=== PATIENT | male | born 1965 | race Caucasian/White ===

== ENCOUNTER → 2017-07-31 | Outpatient (CLI) | payer OTHER, BC ==
[~2017-07-31] MED LIST: ALBUAER19 INH; ALLDSR/24 PO; ALPR1TAB3 PO; AMPH20TA2 PO; LAMO200T PO; LEVE500T13 PO; NORT50CA PO; NSNN50; OMEP40CA PO; OXYC-106 PO; PSYL55.43 PO; SERT-234 PO; SYMIN/8045 INH; TOPI100T34 PO; [UNRECOGNIZED DRUG - OTHER] INH
== END | disposition home or self-care (01) ==
LOC: C.RDSM 07:45
PROVIDERS: ATTEND Physical Medicine & Rehabilitation Sports Medicine
DX: Z96.653 Presence of artificial knee joint, bilateral (principal)

== ENCOUNTER 2020-10-28 06:32 | Observation (INO) ==
--- NOTE | 2020-10-02 09:59 | PAT Medication Instructions ---
Medication Instructions Date of Service October 02, 2020 Home Medications albuterol sulfate 1 inh INHALATION QID PRN lisinopril 20 mg PO QAM DO NOT take the morning of surgery lisinopril 20 mg PO QAM Take morning of surgery OTHERWISE NOTHING TO EAT OR DRINK AFTER MIDNIGHT: albuterol sulfate 1 inh INHALATION QID PRN Other Notes If you have any questions please call us at [phone] or [phone] or [phone] or [phone]
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
[2020-10-05 13:24] LABS: BUN Creatinine Ratio 12.5 (10-20); Blood Urea Nitrogen 15 mg/dl (7-18); C Reactive Protein < 0.29 mg/dl (0-0.29); Calcium 9.4 mg/dl (8.5-10.1); Carbon Dioxide 29 mmol/L (21-32); Chloride 108 mmol/L (98-107); Creatinine Clr Calc Pharmacy 85.9 ml/min; Est GFR (African American) 81.2; Glucose 127 mg/dl (70-99); Potassium 4.7 mmol/L (3.5-5.1); Sodium 140 mmol/L (136-145)
[2020-10-05 13:28] LABS: Appearance Urine Clear (Clear); Basophils # (auto) 0.01 K/uL (0-0.2); Basophils % (auto) 0.2 %; Bilirubin Urine Negative (Negative); Blood Urine Negative (Negative); Color Urine Yellow; Eosinophils # (auto) 0.23 K/uL (0-0.5); Eosinophils % (auto) 4.3 %; Glucose Urine UA Negative (Negative); Hematocrit (blood only) 47.4 % (42-52); Hemoglobin 15.9 g/dL (14.0-18.0); Immature Granulocytes # (auto) 0.01 K/uL (0.00-0.02); Immature Granulocytes % (auto) 0.2 %; Ketones Urine Trace (Negative); Leukocyte Esterase Urine Negative (Negative); Lymphocytes # (auto) 1.24 K/uL (1.2-3.4); Lymphocytes % (auto) 23.2 %; Mean Corpuscular Hemoglobin 29.3 pg (25-34); Mean Corpuscular Hgb Conc 33.5 g/dL (32-36); Mean Corpuscular Volume 87.5 fL (80-100); Mean Platelet Volume 11.4 fL (7.4-10.4); Monocytes # (auto) 0.28 K/uL (0.11-0.59); Monocytes % (auto) 5.2 %; Neutrophils # (auto) 3.57 K/uL (1.4-6.5); Neutrophils % (auto) 66.9 %; Nitrite Urine Negative (Negative); Platelet Count 124 K/uL (130-400); Protein Urine Negative (Negative); RDW Standard Deviation 44.7 fL (36.4-46.3); Red Blood Count 5.42 M/uL (4.7-6.1); Specific Gravity Urine 1.023 (1.000-1.030); Urobilinogen Urine Negative (Negative); White Blood Count 5.34 K/uL (4.8-10.8)
[2020-10-05 13:30] LABS: INR 1.1 (0.9-1.1); Partial Thromboplastin Time 26.9 Seconds (21.0-31.0); Prothrombin Time 11.6 Seconds (9.0-12.0)
--- NOTE | 2020-10-06 11:09 | Electrocardiogram Report ---
Test Reason : Blood Pressure : / mmHG Vent. Rate : 063 BPM Atrial Rate : 063 BPM P-R Int : 130 ms QRS Dur : 092 ms QT Int : 410 ms P-R-T Axes : 048 080 042 degrees QTc Int : 419 ms Normal sinus rhythm Normal ECG When compared with ECG of 28-APR-2014 11:56, No significant change was found Confirmed by Carson Worrell ([id number]) on 10/06/2020 11:09:14 AM Referred By: aLzaro Gutierrez Confirmed By:Carson Worrell
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
[~2020-10-28 06:32] MED LIST changes: -ALBUAER19 INH; -ALLDSR/24 PO; -ALPR1TAB3 PO; -AMPH20TA2 PO; -LAMO200T PO; -LEVE500T13 PO; +LR 15ML/HR IV SCH; +LR 60ML/HR IV SCH; -NORT50CA PO; -NSNN50; -OMEP40CA PO; -OXYC-106 PO; -PSYL55.43 PO; +ROPIVACAINE 0.5% HCL/PF 150 MG, BUPIVACAINE 0.75% MPF 20 ML, EPINEPHrine 0.15 MG, Ketor... INFIL SCH; -SERT-234 PO; -SYMIN/8045 INH; -TOPI100T34 PO; +TRANEXAMIC ACID 1,000 MG **IV Pre-op IV SCH; +VANCOMYCIN HCL 1,750 MG in SODIUM CHLORIDE 0.9% 500 ML IV SCH; -[UNRECOGNIZED DRUG - OTHER] INH; +ceFAZolin 2000MG 2,000 MG/15 ML SYR IV SCH
[2020-10-28] MEDS ORDERED: BUPIVACAINE 0.5 % 5 MG/1 ML PF 10ML VIAL ONE (06:39)
[2020-10-28] MEDS ORDERED: ROPIVACAINE 0.5% 5 MG/ML 30 ML VIAL ONE (06:39)
[2020-10-28] MEDS ORDERED: BUPIVACAINE 0.5 % 5 MG/1 ML MPF 30ML VIAL ONE (06:41)
[2020-10-28] MEDS ORDERED: MIDAZOLAM HCL 1 MG/ML 2ML VIAL ONE (07:06)
[2020-10-28] MEDS ORDERED: fentaNYL citrate 100 MCG/2 ML VIAL ONE ×2 (07:06→09:22)
[2020-10-28] MEDS ORDERED: ePHEDrine sulfate 50 MG/ML AMP IV PRN (07:42)
[2020-10-28] MEDS ORDERED: ONDANSETRON INJ 2 MG/ML 2 ML VIAL IV PRN ×2 (07:42→12:38)
[2020-10-28] MEDS ORDERED: ATROPINE SULFATE 0.1 MG/ML 10ML SYR IV PRN (07:42)
[2020-10-28] MEDS ORDERED: fentaNYL citrate 100 MCG/2 ML VIAL IV PRN (07:42)
[2020-10-28 07:48] LABS: Influenza A virus by PCR Negative (Neg); Influenza B virus by PCR Negative (Neg); RSV by PCR Negative (Neg); SARS CoV2 RNA(COVID-19) InHosp NEGATIVE (Negative)
[2020-10-28] MEDS ORDERED: PROPOFOL IV EMULSION 10 MG/ML 20 ML VIAL IV ONE (08:01)
[2020-10-28] MEDS ORDERED: LIDOCAINE HCL 2% 2 ML VIAL/AMP(20MG/ML) INFIL ONE (08:01)
[2020-10-28] MEDS ORDERED: ONDANSETRON INJ 2 MG/ML 2 ML VIAL ONE (08:01)
[2020-10-28] MEDS ORDERED: ROCURONIUM BROMIDE 10 MG/ML 5 ML VIAL IV ONE (08:01)
--- NOTE | 2020-10-28 08:29 | History & Physical Bridge Note ---
Date of Service October 28, 2020 History & Physical Bridge Note I have examined the patient, reviewed the History & Physical and in the interval since the performance of the History & Physical I have noted the following changes of clinical significance:consent obtained/site verified/covid screen negative.no changes noted
[2020-10-28] MEDS ORDERED: ORTHO JOINT ANESTHETIC ONE (08:44)
--- NOTE | 2020-10-28 10:52 | Post Operative Brief Note ---
Immediate Post Op Note v1 Date of Surgery October 28, 2020 Pre & Post Diagnosis Operation Date: 10/28/20 08:20 Pre-Op Diagnosis: Left Knee Patellar Button Loosening Post-Op Diagnosis: Left Knee Patellar Button Loosening I identified the patient and participated in the time-out.: Yes Procedure Operation Date: 10/28/20 08:20 Actual Procedures p Revision Left Patellar Button with Biomet/Tiff Patellar System(Left) - Lazaro Gutierrez MD Surgeon Lazaro Gutierrez MD Film [facility] Estimated Blood Loss 75 Findings Consistent with Post-Op Diagnosis
--- NOTE | 2020-10-28 10:55 | History & Physical Bridge Note ---
Date of Service October 28, 2020 History & Physical Bridge Note I have examined the patient, reviewed the History & Physical and in the interval since the performance of the History & Physical I have noted the following changes of clinical significance:additional bridge note; also see op note.please note patient requested doing his left knee today this was verified marked and new consent obtained.he will need the right done in the future. rapid covid negative. no changes noted
--- NOTE | 2020-10-28 11:08 | Operative Report ---
Post Operative Report Pre & Post Diagnosis Operation Date: 10/28/20 08:20 Pre-Op Diagnosis: Left Knee Patellar Button Loosening Post-Op Diagnosis: Left Knee Patellar Button Loosening I identified the patient and participated in the time-out.: Yes Procedure Operation Date: 10/28/20 08:20 Actual Procedures p Revision Left Patellar Button with Biomet/Tiff Patellar System(Left) - Lazaro Gutierrez MD Surgeon ANA Gutierrez MD [employer] Estimated Blood Loss 75 Findings Consistent with Post-Op Diagnosis Specimens see operative report Drains none Complications none Disposition Accompanied Patient To Recovery: Yes Disposition: Recovery Room Indications This 55-year-old white male presented to the office with complaints of persisting left knee pain. He had tried conservative care measures without improvement. He has a history of previous left total knee arthroplasty. Subsequently sustained a patellar fracture. He elected to proceed with surgical intervention after being educated about potential risks and outcomes. Preoperative imaging was obtained. Description of Procedure Patient was taken to the operating room where he was given general anesthesia. He was prepped and draped in the usual sterile fashion. Please see Dr. Gutierrez's operative report for specifics of the procedure. I was present for the entire case from initial patient positioning through final wound closure. Assistance was provided in tissue retraction, hemostasis, trial implant placement, final implant placement, and final wound closure. Patient was taken to the recovery room in satisfactory condition. I attest to the content of the Intraoperative Record and any orders documented therein. Any exceptions are noted below.
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
--- NOTE | 2020-10-28 11:18 | Progress Notes ---
DATE: 10/28/2020 SUBJECTIVE: Status post revision extensor mechanism, left patellar button for traumatic loosening. The patient is resting comfortably in the PACU. He denies any chest pain, shortness of breath, fever, chills, nausea, vomiting or headache. Neurovascular check is grossly normal. Wound dressing clean, dry and intact. X-ray is pending. ASSESSMENT: Doing well. Continue with care pathway. If he does well overnight, discharge tomorrow. DVT prophylaxis per protocol.
--- NOTE | 2020-10-28 11:38 | XRay Report ---
XR knee LT 1 or 2V routine HISTORY: 55 years-old Male revision patellar button TKA left left knee total joint arthroplasty COMPARISON: Knee radiographs 06/29/2015 TECHNIQUE: 2 views of the left knee FINDINGS: Revision of the left knee total joint arthroplasty with patellar resurfacing. Alignment appears [employer]. Dystrophic calcification again noted within the region of the proximal medial collateral lig ament. No acute fracture. There is a linear 2.6 cm ossification noted along the inferior pole of the patella. Screw tracts are noted within the distal femur and proximal tibia. Anterior midline skin sta ples are noted along with expected postsurgical soft tissue swelling and deep tissue air with surgica l drainage catheter. IMPRESSION: Satisfactory alignment of the left knee total joint arthroplasty. ACT 112: Negative or not required by law. The above report was generated using voice recognition software. It may contain grammatical, syntax o r spelling errors. Electronically signed by: Toñito Boston M.D. 10/28/2020 11:36 AM
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
--- NOTE | 2020-10-28 12:19 | Anesthesiology Progress Note ---
Date of Service October 28, 2020 Anesthesia Post Procedure Vital Signs Vital Signs: Temp Pulse Pulse Resp BP BP Pulse Ox 10/28/20 12:00 96 H 13 133/85 96 10/28/20 11:50 69 16 128/75 96 10/28/20 11:40 97.7 F 72 15 119/77 97 10/28/20 11:30 70 14 122/80 96 10/28/20 11:20 75 12 134/95 99 10/28/20 11:10 83 15 144/89 H 98 10/28/20 11:04 97.7 F 74 16 119/84 96 10/28/20 06:50 98.2 F 79 18 139/62 96 Transfer of Care Handoff Completed per policy Notes Mental Status: alert / awake / arousable and participated in evaluation Patient Amnestic to Procedure: Yes Nausea / Vomiting: adequately controlled Pain: adequately controlled Airway Patency, RR, SpO2: stable & adequate BP & HR: stable & adequate Hydration State: stable & adequate Anesthetic Complications: no major complications apparent and Pt Satisfied with anesthetic care
[2020-10-28] MEDS ORDERED: bisacodyL 10 MG SUPP PR PRN (12:38)
[2020-10-28] MEDS ORDERED: TAMSULOSIN HCL 0.4 MG CAP PO PRN (12:38)
[2020-10-28] MEDS ORDERED: ALUMINUM/MAGNESIUM SUSP 30 ML UDC PO PRN (12:38)
[2020-10-28] MEDS ORDERED: METOCLOPRAMIDE HCL INJ 5 MG/ML 2 ML VIAL IV PRN (12:38)
[2020-10-28] MEDS ORDERED: HYDROmorphone INJ 0.5 MG/0.5 ML SYR IV PRN (12:38)
[2020-10-28] MEDS ORDERED: SODIUM CHLORIDE 0.9% 1000ML 1,000 ML IV SCH (12:38)
[2020-10-28] MEDS ORDERED: NALOXONE HCL 0.4 MG/1 ML VIAL/CARP IV PRN (12:38)
[2020-10-28] MEDS ORDERED: MAGNESIUM HYDROXIDE SUSP 30 ML UDC PO PRN (12:38)
[2020-10-28] MEDS ORDERED: diphenhydrAMINE 50 MG/ML VIAL IV PRN (12:38)
[2020-10-28] MEDS ORDERED: ALBUTEROL HFA 8 GM INHALER INH PRN (12:38)
[2020-10-28] MEDS: ACETAMINOPHEN 500 MG TAB PO SCH ×2 (14:33→21:29)
[2020-10-28] MEDS: ORTHO WARFARIN NOMOGRAM SCH (14:33)
[2020-10-28] MEDS: KETOROLAC 30 MG/ML VIAL IV SCH ×2 (14:34→21:29)
[2020-10-28] MEDS ORDERED: WARFARIN SOD 5 MG TAB PO ONE (16:00)
[2020-10-28] MEDS: oxyCODONE HCL IR 5 MG TAB (IMMEDIATE RELEASE) PO PRN ×2 (16:09→20:30)
[2020-10-28] MEDS ORDERED: TRANEXAMIC ACID / 0.7% NACL 1,000 MG/100 ML BAG IV SCH (17:30)
[2020-10-28] MEDS: FERROUS GLUCONATE 324 MG TAB PO SCH (17:39)
[2020-10-28] MEDS: ASCORBIC ACID 500 MG TAB PO SCH (17:39)
[2020-10-28] MEDS: ceFAZolin 2000MG 2,000 MG/15 ML SYR IV SCH (17:40)
[2020-10-28] MEDS: DOCUSATE SODIUM 100 MG CAP PO SCH (20:30)
[2020-10-28] MEDS ORDERED: SENNA 8.6 MG TAB PO SCH (21:00)
[2020-10-29] MEDS: ceFAZolin 2000MG 2,000 MG/15 ML SYR IV SCH (00:19)
[2020-10-29] MEDS: KETOROLAC 30 MG/ML VIAL IV SCH ×2 (00:20→08:17)
[2020-10-29] MEDS: ACETAMINOPHEN 500 MG TAB PO SCH ×2 (05:02→12:40)
[2020-10-29 06:26] LABS: Hematocrit (blood only) 40.4 % (42-52); Hemoglobin 13.3 g/dL (14.0-18.0); Mean Corpuscular Hemoglobin 29.2 pg (25-34); Mean Corpuscular Hgb Conc 32.9 g/dL (32-36); Mean Corpuscular Volume 88.6 fL (80-100); RDW Coefficient of Variation 14.2 % (11.5-14.5); RDW Standard Deviation 46.2 fL (36.4-46.3); Red Blood Count 4.56 M/uL (4.7-6.1); White Blood Count 5.72 K/uL (4.8-10.8)
[2020-10-29 06:36] LABS: INR 1.1 (0.9-1.1)
--- NOTE | 2020-10-29 06:49 | Progress Notes ---
DATE: 10/29/2020 SUBJECTIVE: Postop day #1 status post revision patellar surface and repair of extensor mechanism, left total knee replacement. The patient did well overnight. No major issues. OBJECTIVE: Vital signs are stable. He is afebrile. Laboratory work is pending. He can do a straight leg raise. Neurovascular check is normal. Calves are nontender. ASSESSMENT AND PLAN: Doing well. Check labs. If he does well with PT/OT after dressing change, discharge today. Follow up in 2 weeks. Labs are good for discharge. VERONIQUE
[2020-10-29 06:54] LABS: BUN Creatinine Ratio 17.1 (10-20); Calcium 8.1 mg/dl (8.5-10.1); Creatinine Clr Calc Pharmacy 91.4 ml/min; Est GFR (African American) 87.4; Est GFR (Non-African American) 75.4; Potassium 4.2 mmol/L (3.5-5.1)
[2020-10-29 07:07] LABS: Mean Platelet Volume 11.8 fL (7.4-10.4); Platelet Count 95 K/uL (130-400)
[2020-10-29] MEDS: DOCUSATE SODIUM 100 MG CAP PO SCH (08:16)
[2020-10-29] MEDS: ASCORBIC ACID 500 MG TAB PO SCH (08:17)
[2020-10-29] MEDS: FERROUS GLUCONATE 324 MG TAB PO SCH (08:17)
[2020-10-29] MEDS ORDERED: MULTIVITAMIN TAB PO SCH (09:00)
[2020-10-29] MEDS ORDERED: lisinopril 20 MG TAB PO SCH (09:00)
[2020-10-29] MEDS: ORTHO WARFARIN NOMOGRAM SCH (11:15)
[2020-10-29] MEDS ORDERED: WARFARIN SOD 5 MG TAB PO ONE ×2 (11:45→16:00)
[2020-10-29] MEDS ORDERED: ORTHO WARFARIN NOMOGRAM SCH (14:00)
--- NOTE | 2020-10-29 22:22 | Orthopedic Progress Note ---
Date of Service October 29, 2020 Assessment & Plan (1) Status post orthopedic surgery, follow-up exam: Patient was seen in his room this morning. Dressings were changed by me. JUANCARLOS hose were reapplied. Importance of working on his range of motion was discussed. He was also reminded to not work the knee too heavily. No flexion past 90. Prescriptions for Coumadin and Percocet were sent to his pharmacy. He will be discharged home today. Written discharge instructions were provided. He will start Coumadin tomorrow night and take 4 mg daily. Blood draw on Monday. Patient was cautioned about doing too much activity. Discharge to home today after PT/OT. Prescription was given for rolling walker. He was also given a prescription for INR draws 2 times a week for the next 6 weeks. Call with any other concerns. Admission and Anticipated Discharge Date Admission Date: October 28, 2020 Subjective Patient is seen in his room this morning. He is alert and awake. He has already finished breakfast. He has no complaints. States he is happy with his knee. He feels ready for discharge. Review of Systems Review of Systems: Unchanged from yesterday's exam. Physical Exam Physical Exam: General: Well-developed, well-nourished, middle-aged white male, laying in bed. Alert and oriented. Skin: Warm and dry with good turgor. Left knee has expected postoperative edema. No ecchymosis. Bandages were dry. Upon removal, there is minor drainage on his dressings. No active bleeding. [place] are intact. Wound edges are well approximated. Musculoskeletal: Patient is able to perform a straight leg raise. He has full terminal extension. He is able to set his quad. Intact motor function of the ankle and toes. Neurologic: Gross sensation is intact across the left leg by soft touch. Peripheral pulses are 2+. Results & Data ([facility]) Vital Signs (Past 12 Hours) Vital Signs Temp Pulse Pulse Resp BP BP Pulse Ox 10/29/20 11:09 36.6 C 67 58 L 16 110/68 94/47 L 95 Laboratory Results INR today is 1.1. H&H are 13.3 and 40.4. White cells normal at 5.7. Chloride level mildly high at 110. Normal sodium at 140 and normal potassium at 4.2. BUN is mildly elevated at 19. Creatinine normal at 1.11.
== END 2020-10-29 13:01 | disposition home or self-care (01) ==
LOC: 3E 06:32 → ASU 06:32